=== PATIENT | male | born 1940 | race Caucasian/White ===

== ENCOUNTER → 2017-11-29 | Outpatient (CLI) | payer MEDICARE ==
[~2017-11-29] MED LIST: ACET-1748 PO; BUDE10.2 INH; CALC-936 PO; CHOL200074 PO; CIPR-368 PO; COM14R IH; DOTERRA PO; DOXY-179 PO; GUALA600 PO; HYDR473S4 PO; IPRA3AMP21 IH; LEVO50TA80 PO; LEVO50TA86 PO; LOVA40TA89 PO; MULT-820 PO; OMEP-218 PO; OMEP20CA68 PO; ONDA8TAB94 PO; PRED20TA6 PO; TIO18R INH
--- NOTE | 2017-11-29 14:18 | RADIOLOGY IMAGING REPORT ---
[place] [facility] [place] NAME: Ricky Damon : 1940 MR: [id number] V: [id number] EXAM DATE: ORDERING PHYSICIAN: YENNI VO TECHNOLOGIST: Location: [facility] - [place] Patient: Ricky Damon : 1940 Visit/Account:[id number] Date of Sevice: 11/29/2017 Exam type: CHEST PA AND LAT History: Cough, previous smoker, COPD, history of pneumonia Comparison: March 06, 2013 Findings: Again noted is hyperinflation lung montano with flattening the hemidiaphragms. Pleural parenchymal sc arring in the left lung base is again seen. Appears to be slight increase in the parenchymal density in the medial left lung base which could represent progressive scarring versus superimposed infiltra te and/or atelectasis. Cardiac silhouette is normal in size. There are old left-sided rib fractures . IMPRESSION: 1. Hyperinflation lung montano consistent with history of COPD Pleural plaque or scarring left lung base Slight increased density in the medial left lung base which could represent additional scarring versu s superimposed infiltrate and/or atelectasis. Report Dictated By: Claudine Novak MD at 11/29/2017 2:10 PM Report E-Signed By: Claudine Novak MD at 11/29/2017 2:13 PM WSN:[email or web address]
== END ==
LOC: RAD 10:27
PROVIDERS: ATTEND Nurse Practitioner Primary Care
DX: J44.9 Chronic obstructive pulmonary disease, unspecified (principal); R91.8 Other nonspecific abnormal finding of lung field; F17.201 Nicotine dependence, unspecified, in remission
CPT/HCPCS: 71046

== ENCOUNTER → 2018-11-10 | Outpatient (CLI) | payer MEDICARE ==
[~2018-11-10] MED LIST changes: +ALB18R INH; +IPRA3AMP10 IH; -IPRA3AMP21 IH; +OXYGENHOME INH
== END ==
LOC: RESP 11-08 01:41
PROVIDERS: ATTEND Family Medicine
DX: J98.4 Other disorders of lung (principal)
CPT/HCPCS: 94060; 94726; 94729

== ENCOUNTER → 2019-01-05 | Outpatient (CLI) | payer MEDICARE ==
[2019-01-05 12:20] LABS: PLATELET COUNT, AUTOMATED 274 K/uL (150-450)
== END ==
LOC: LAB 11:48
PROVIDERS: ATTEND Nurse Practitioner Primary Care
DX: R10.30 Lower abdominal pain, unspecified (principal)
CPT/HCPCS: 36415; 81001; 82040; 82247; 82310; 82374; 82435; 82565; 82947; 84075; 84132; 84155; 84295; 84450; 84460; 84520; 85025

== ENCOUNTER → 2019-01-12 | Outpatient (CLI) | payer MEDICARE ==
[~2019-01-12] MED LIST changes: +METR500T15 PO; +SULF-198 PO
--- NOTE | 2019-01-12 15:59 | RADIOLOGY IMAGING REPORT ---
FACILITY: [facility] PATIENT NAME: Ricky Damon : 1940 MR: [id number] V: [id number] EXAM DATE: ORDERING PHYSICIAN: SARAH EDUARDO TECHNOLOGIST: Location: [facility] Patient: Ricky Damon : 1940 Visit/Account:[id number] Date of Sevice: 01/12/2019 CT ABDOMEN PELVIS W/O CON HISTORY: Low abdomen and pelvic pain for two weeks TECHNIQUE: Axial images acquired through the abdomen/pelvis. Coronal and sagittal reformatting also performed. No IV contrast administered.Dose Lowering Technique One of the following dose optimization techniques was utilized in the performance of this exam: Autom ated exposure control; adjustment of the mA and/or kV according to the patient's size; or use of an i terative reconstruction technique. Specific details can be referenced in the facility's radiology C T exam operational policy. COMPARISON: CT of the chest May 28, 2011 FINDINGS: Visualized lung bases: There are emphysematous changes in the visualized lower lung montano in additi on to scarring in the right lower lobe Hepatobiliary: Negative. Spleen: Negative. Adrenals: Negative. Pancreas: Negative. Kidneys ureters and bladder: There is a 2 mm nonobstructing calculus in the lower pole of the left ki dney Genitalia: Prostate gland is enlarged and impinges upon the floor the bladder GI: There is extensive diverticulosis in the sigmoid colon. There is mild wall thickening and mild infiltrative changes in the pericolonic fat within the mid sigmoid colon likely related to acute dive rticulitis. There is no evidence of free perforation or peridiverticular abscess. Scattered diverti cula are seen elsewhere throughout the colon . There is a large hiatal hernia Vessels/spaces/nodes: There moderate to severe atherosclerotic calcifications throughout the abdomen and pelvis Bones/soft tissues: . There is a small umbilical hernia containing fat. A small ventral hernia abo ve the level of the umbilicus containing a knuckle of nonobstructed small bowel. The hernia opening measures approximately 1.5 cm in diameter. There are bilateral inguinal hernias containing fat. Additional findings: None pertinent. IMPRESSION: Finds are consistent with mild acute diverticulitis in the sigmoid colon without evidence of perforat ion or peridiverticular abscess Large hiatal hernia Small umbilical hernia containing fat Bilateral inguinal hernias containing fat There is a small ventral hernia in the upper abdomen containing a knuckle of nonobstructed small brett l. Additional chronic findings as described Results were called to SARAH EDUARDO 'sat nurse Rashida 01/12/2019 3:54 PM. Report Dictated By: Claudine Novak MD at 01/12/2019 3:28 PM Report E-Signed By: Claudine Novak MD at 01/12/2019 3:55 PM WSN:[email or web address]
== END ==
LOC: CT 07:21
PROVIDERS: ATTEND Family Medicine
DX: K44.9 Diaphragmatic hernia without obstruction or gangrene (principal); K42.9 Umbilical hernia without obstruction or gangrene; K40.20 Bilateral inguinal hernia, without obstruction or gangrene, not specified as recurrent
CPT/HCPCS: 74176

== ENCOUNTER 2019-01-20 02:47 | Emergency (ER) | payer MEDICARE ==
--- NOTE | 2019-01-20 02:52 | ER Report ---
History and Physical Time Seen By MD: 02:50 HPI/ROS CHIEF COMPLAINT: Abdominal pain HISTORY OF PRESENT ILLNESS: Patient is a 78-year-old male who presents to the emergency department with complaint of lower abdominal pain. Review of the electronic medical record shows that the patient was seen by primary care provider on January 12 and had complained of abdominal pain was given a CT of the abdomen and pelvis which revealed diverticulitis. Patient was started on Bactrim and Flagyl according to the note. The patient was seen in follow-up on January 16 and was told to continue his antibiotics which looks like he was prescribed a 10 day course. The patient has allergies to both Augmentin, amoxicillin and ciprofloxacin. Patient states that he was feeling improved on the when he saw his primary care provider and then over the course of the next few days the abdominal pain returned. He describes it as a burning in the lower quadrants of the abdomen but somewhat worse on the left side. He reports no nausea or vomiting. He reports mild loose stools without blood or mucus. He denies any chest pain or shortness of breath. Denies fevers or chills. REVIEW OF SYSTEMS: Constitutional: No fever, no chills. Eyes: No discharge. ENT: No sore throat. Cardiovascular: No chest pain, no palpitations. Respiratory: No cough, no shortness of breath. Gastrointestinal: Lower abdominal pain, no nausea, no vomiting Genitourinary: No hematuria. Increased urinary frequency Musculoskeletal: No back pain. Skin: No rashes. Neurological: No headache. Allergies: Coded Allergies: ciprofloxacin (Verified Allergy, Unknown, RASH, 01/20/19) amoxicillin (Verified Adverse Reaction, Unknown, NAUSEA/VOMITING, 01/20/19) clavulanic acid (Verified Adverse Reaction, Unknown, NAUSEA/VOMITING, 01/20/19) Home Meds Active Scripts Hydrocodone Bit/Acetaminophen (HYDROCODON-ACETAMINOPHEN 5-325) 1 Each Tablet, 1 EACH PO Q4-6H for PAIN, #6 TAB 0 Refills Prov:LEIGHA CHO MD 01/20/19 Amoxicillin/Pot Clav 875-125 Mg Tab (AUGMENTIN 875-125 TABLET) 1 Each Tablet, 1 TAB PO Q12H for 3 Days, #6 TAB 0 Refills first dose evening of 01/20/19 Prov:LEIGHA CHO MD 01/20/19 Metronidazole (METRONIDAZOLE) 500 Mg Tablet, 1 TAB PO Q8H, #30 TAB 0 Refills Prov:DIANNA LERMA APRN [employer]ER-C 01/12/19 Sulfamethoxazole/Trimet 800-160 Mg Tab (BACTRIM DS TABLET) 1 Each Tablet, 1 TAB PO Q12H, #20 TAB 0 Refills Prov:DIANNA LERMA APRN [employer]ER-C 01/12/19 Levothyroxine Sodium (LEVOTHYROXINE SODIUM) 50 Mcg Tablet, 1 TAB PO QDAY for 90 Days, #90 TAB 4 Refills Prov:SARAH EDUARDO MD 11/29/18 Omeprazole Magnesium (OMEPRAZOLE MAGNESIUM) 20 Mg Capsule.dr, 1 CAP PO QDAY for 90 Days, #90 CAP 4 Refills Prov:SARHA EDUARDO MD 10/04/18 Lovastatin (LOVASTATIN) 40 Mg Tablet, 1 TAB PO DAILY, #90 TAB 4 Refills Prov:SARAH EDUARDO MD 04/18/18 Budesonide/Formoterol Fumarate (SYMBICORT 160-4.5 MCG INHALER) 10.2 Gm Inh, 2 PUFF INH BID for 90 Days, #3 INH 4 Refills Prov:SARAH EDUARDO MD 01/10/18 Albuterol Sulfate (VENTOLIN HFA) 18 Gm Inh, 1-2 PUFF INH 3-4XD PRN for PRN, #1 INH 11 Refills Prov:SARAH EDUARDO MD 01/03/18 Reported Medications Oxygen (OXYGEN) Inha, 2 L INH, L 05/09/18 Cholecalciferol (Vitamin D3) (VITAMIN D-3) 2,000 Unit Capsule, 1 CAP PO DAILY, CAPSULE 11/02/17 Past Medical/Surgical History Past medical history for hyperlipidemia, COPD, gastroesophageal reflux disease, hypothyroidism, history of lobectomy left lower lobe. Recent history of diverticulitis. Hx Smoking: Yes Smoking Status: Former Smoker Hx Alcohol Use: No Constitutional Vital Sign - Last 24 Hours 01/20/19 01/20/19 01/20/19 01/20/19 02:47 02:51 02:54 03:00 Temp 97.8 Pulse ??? 100 Resp 15 B/P (MAP) 137/87 137/87 (104) 140/109 (119) Pulse Ox 85 5/2501/20/19 01/20/19 01/20/19 03:17 03:30 03:47 04:00 Pulse 82 B/P (MAP) 118/80 (93) 135/74 (94) Pulse Ox 89 92 01/20/19 01/20/19 01/20/19 01/20/19 04:22 04:30 04:52 04:57 Pulse 61 66 58 B/P (MAP) 131/77 (95) Pulse Ox 94 93 93 01/20/19 05:00 B/P (MAP) 129/73 (91) Intake and Output 01/19/19 01/19/19 01/20/19 15:00 23:00 07:00 Intake Total 1100 ml Balance 1100 ml Physical Exam General/Constitutional: Patient is awake, alert, nontoxic and in no acute respiratory distress. Head: Normocephalic and atraumatic. Eyes: Conjunctival clear, Sclera are clear and anicteric. Ears:External canals are clear. Tympanic membranes are clear with normal landmarks and light reflex. Nares: No rhinorrhea or bleeding. Turbinates are pink and moist. Oropharyngeal: Mucous membranes are moist. There is no pharyngeal erythema or exudate. There are no palatal petechiae. Uvula is midline and symmetrical. Neck: Supple, no adenopathy. Cardiovascular: Heart is regular rate and rhythm without audible murmurs, rubs or gallops. Pulmonary: Lungs are clear to auscultation bilaterally. There are no wheezes, rales, or rhonchi. Chest rise is symmetrical Abdomen: Soft, to prevent, no guarding or peritoneal signs Extremities: No gross deformities, No peripheral cyanosis. Able to move all 4 extremities. Neuro: Alert and oriented X3, Skin: No rashes, skin is warm dry and well perfused. Medical Decision Making Data Points Result Diagram: 01/20/195 01/20/19314 Laboratory Hematology Test 01/20/19 02:51 01/20/19 03:15 Urine Color Yellow Urine Clarity Clear Urine pH 6.0 pH (4.8-9.5) Urine Specific Wilmore 1.006 Urine Protein Negative mg/dL (NEGATIVE) Urine Glucose (UA) Negative mg/dL (NEGATIVE) Urine Ketones Negative mg/dL (NEGATIVE) Urine Blood Negative (NEGATIVE) Urine Nitrite Negative (NEGATIVE) Urine Bilirubin Negative (NEGATIVE) Urine Urobilinogen Negative mg/dL (0.2-1.9) Urine Leukocyte Esterase Negative (NEGATIVE) Urine RBC 1 /HPF (0-2/HPF) Urine WBC <1 /HPF (0-5/HPF) Urine Squamous Epithelial Cells Few /LPF (</=FEW) Urine Bacteria Negative /HPF (NONE-FEW) Urine Mucus None /HPF (NONE-FEW) Red Blood Count 5.44 M/uL (4.00-5.60) Mean Corpuscular Volume 88.5 fL (80.0-96.0) Mean Corpuscular Hemoglobin 30.3 pg (26.0-33.0) Mean Corpuscular Hemoglobin Concent 34.3 g/dL (32.0-36.0) Red Cell Distribution Width 14.7 % (11.5-14.5) Mean Platelet Volume 9.2 fL (7.2-11.1) Neutrophils (%) (Auto) 58.4 % (39.4-72.5) Lymphocytes (%) (Auto) 32.6 % (17.6-49.6) Monocytes (%) (Auto) 7.7 % (4.1-12.4) Eosinophils (%) (Auto) 0.7 % (0.4-6.7) Basophils (%) (Auto) 0.6 % (0.3-1.4) Nucleated RBC Relative Count (auto) 0.0 /100WBC Neutrophils # (Auto) 5.9 K/uL (2.0-7.4) Lymphocytes # (Auto) 3.3 K/uL (1.3-3.6) Monocytes # (Auto) 0.8 K/uL (0.3-1.0) Eosinophils # (Auto) 0.1 K/uL (0.0-0.5) Basophils # (Auto) 0.1 K/uL (0.0-0.1) Nucleated RBC Absolute Count (auto) 0.00 K/uL Sodium Level 136 mmol/L (137-145) Potassium Level 4.1 mmol/L (3.5-5.0) Chloride Level 104 mmol/L (98-107) Carbon Dioxide Level 21 mmol/L (22-30) Blood Urea Nitrogen 13 mg/dl (9-21) Creatinine 1.50 mg/dl (0.66-1.25) Glomerular Filtration Rate Calc 45.4 Random Glucose 116 mg/dl (75-110) Calcium Level 9.9 mg/dl (8.4-10.2) Total Bilirubin 0.5 mg/dl (0.2-1.3) Aspartate Amino Transf (AST/SGOT) 41 U/L (0-35) Alanine Aminotransferase (ALT/SGPT) 44 U/L (0-56) Alkaline Phosphatase 37 U/L (0-126) Total Protein 7.0 g/dl (6.3-8.2) Albumin 4.3 g/dl (3.5-5.0) Lipase 63 U/L (23-300) Chemistry Test 01/20/19 02:51 01/20/19 03:15 Urine Color Yellow Urine Clarity Clear Urine pH 6.0 pH (4.8-9.5) Urine Specific Wilmore 1.006 Urine Protein Negative mg/dL (NEGATIVE) Urine Glucose (UA) Negative mg/dL (NEGATIVE) Urine Ketones Negative mg/dL (NEGATIVE) Urine Blood Negative (NEGATIVE) Urine Nitrite Negative (NEGATIVE) Urine Bilirubin Negative (NEGATIVE) Urine Urobilinogen Negative mg/dL (0.2-1.9) Urine Leukocyte Esterase Negative (NEGATIVE) Urine RBC 1 /HPF (0-2/HPF) Urine WBC <1 /HPF (0-5/HPF) Urine Squamous Epithelial Cells Few /LPF (</=FEW) Urine Bacteria Negative /HPF (NONE-FEW) Urine Mucus None /HPF (NONE-FEW) White Blood Count 10.0 k/uL (4.5-11.0) Red Blood Count 5.44 M/uL (4.00-5.60) Hemoglobin 16.5 g/dL (14.0-18.0) Hematocrit 48.2 % (42.0-52.0) Mean Corpuscular Volume 88.5 fL (80.0-96.0) Mean Corpuscular Hemoglobin 30.3 pg (26.0-33.0) Mean Corpuscular Hemoglobin Concent 34.3 g/dL (32.0-36.0) Red Cell Distribution Width 14.7 % (11.5-14.5) Platelet Count 286 K/uL (150-450) Mean Platelet Volume 9.2 fL (7.2-11.1) Neutrophils (%) (Auto) 58.4 % (39.4-72.5) Lymphocytes (%) (Auto) 32.6 % (17.6-49.6) Monocytes (%) (Auto) 7.7 % (4.1-12.4) Eosinophils (%) (Auto) 0.7 % (0.4-6.7) Basophils (%) (Auto) 0.6 % (0.3-1.4) Nucleated RBC Relative Count (auto) 0.0 /100WBC Neutrophils # (Auto) 5.9 K/uL (2.0-7.4) Lymphocytes # (Auto) 3.3 K/uL (1.3-3.6) Monocytes # (Auto) 0.8 K/uL (0.3-1.0) Eosinophils # (Auto) 0.1 K/uL (0.0-0.5) Basophils # (Auto) 0.1 K/uL (0.0-0.1) Nucleated RBC Absolute Count (auto) 0.00 K/uL Glomerular Filtration Rate Calc 45.4 Calcium Level 9.9 mg/dl (8.4-10.2) Total Bilirubin 0.5 mg/dl (0.2-1.3) Aspartate Amino Transf (AST/SGOT) 41 U/L (0-35) Alanine Aminotransferase (ALT/SGPT) 44 U/L (0-56) Alkaline Phosphatase 37 U/L (0-126) Total Protein 7.0 g/dl (6.3-8.2) Albumin 4.3 g/dl (3.5-5.0) Lipase 63 U/L (23-300) Urinalysis Test 01/20/19 02:51 Urine Color Yellow Urine Clarity Clear Urine pH 6.0 pH (4.8-9.5) Urine Specific Wilmore 1.006 Urine Protein Negative mg/dL (NEGATIVE) Urine Glucose (UA) Negative mg/dL (NEGATIVE) Urine Ketones Negative mg/dL (NEGATIVE) Urine Blood Negative (NEGATIVE) Urine Nitrite Negative (NEGATIVE) Urine Bilirubin Negative (NEGATIVE) Urine Urobilinogen Negative mg/dL (0.2-1.9) Urine Leukocyte Esterase Negative (NEGATIVE) Urine RBC 1 /HPF (0-2/HPF) Urine WBC <1 /HPF (0-5/HPF) Urine Squamous Epithelial Cells Few /LPF (</=FEW) Urine Bacteria Negative /HPF (NONE-FEW) Urine Mucus None /HPF (NONE-FEW) EKG/Imaging Imaging FACILITY: [facility] PATIENT NAME: Ricky Damon : 1940 MR: [id number] V: [id number] EXAM DATE: [id number] ORDERING PHYSICIAN: LEIGHA CHO TECHNOLOGIST: Location: [facility] - [place] Patient: Ricky Damon : 1940 Visit/Account:[id number] Date of Sevice: 01/20/2019 COMPUTED TOMOGRAPHY ABDOMEN AND PELVIS WITH INTRAVENOUS CONTRAST DATE OF EXAM: 01/20/2019 2:59 AM INDICATION: Left lower quadrant abdominal pain. COMPARISON: 01/12/2019. TECHNIQUE: Contrast enhanced abdomen and pelvis CT performed during the injection of 75 ml of Isovue 370. Sagittal and coronal reconstructions were performed. One of the following dose optimization techniques was utilized in the performance of this exam: Automated exposure control; adjustment of the mA and/or kV according to the patient's size; or use of an iterative reconstruction technique. Specific details can be referenced in the facility's radiology CT exam operational policy. FINDINGS: Lung bases: Bibasilar scarring and emphysema. Liver and hepatic vasculature: Normal. Gallbladder and bile ducts: Normal. Spleen: Normal. Pancreas: Normal. Adrenals: Normal. Kidneys, ureters and bladder: Normal. Retroperitoneum and aorta: Nonaneurysmal aorta with cluc-pt-pldyujpq atherosclerosis. No adenopathy. GI tract, mesentery and peritoneum: Severe sigmoid diverticulosis. Focal inflammation near the midpoint of the sigmoid colon on the prior examination has largely resolved. No evidence of obstruction. No pneumatosis, pneumoperitoneum or significant free fluid. Normal appendix. Moderate to large size hiatal hernia. Prostate and seminal vesicles: Prostamegaly. Bones and soft tissues: Fat-containing umbilical and bilateral inguinal hernias as previously described. IMPRESSION: Diverticulitis seen on the prior examination appears to have resolved. Underlying severe sigmoid diverticulosis. Additional nonacute findings as described. Report Dictated By: Liang Cabrales MD at 01/20/2019 4:18 AM Report E-Signed By: Liang Cabrales MD at 01/20/2019 4:26 AM WSN:[email or web address] ED Course/Re-evaluation ED Course 01/20/2019 3:02:06 am After history and physical exam was performed differential diagnosis was formulated which includes but is not limited to failed outpatient treatment of diverticulitis, colitis, urinary tract infection. Plan at this time will be to place an IV we will give fluids IV Toradol for pain. Current pain level is 6 out of 10 in intensity. We'll perform abdominal workup including labs and CT scan of the abdomen and pelvis. 01/20/2019 4:49:[address] scan shows a resolution of prior diverticulitis there is severe sigmoid diverticulosis. Because of pain symptoms we will switch antibiotics we will give 1 dose of IV piperacillin/tazobactam; we'll then have him stop his Flagyl and Bactrim and give 3 additional days of Augmentin. Patient was instructed that if he develops a fever at any time or his abdominal pain worsens he should follow-up with his primary care provider or return to the emergency department for reevaluation Decision to Disposition Date: January 20, 2019 Decision to Disposition Time: 06:35 Depart Departure Latest Vital Signs Vital Signs Date Time Temp Pulse Resp B/P (MAP) Pulse Ox O2 Delivery O2 Flow Rate FiO2 01/20/19 05:00 129/73 (91) 01/20/19 04:57 58 93 01/20/19 02:51 97.8 15 Impression: Primary Impression: Abdominal pain Condition: Improved Disposition: HOME OR SELF-CARE Referrals: SARAH EDUARDO MD (PCP) New Scripts Hydrocodone Bit/Acetaminophen (HYDROCODON-ACETAMINOPHEN 5-325) 1 Each Tablet 1 EACH PO Q4-6H for PAIN, #6 TAB 0 Refills Prov: LEIGHA CHO MD 01/20/19 Amoxicillin/Pot Clav 875-125 Mg Tab (AUGMENTIN 875-125 TABLET) 1 Each Tablet 1 TAB PO Q12H for 3 Days, #6 TAB 0 Refills first dose evening of 01/20/19 Prov: LEIGHA CHO MD 01/20/19 Patient Instructions: Abdominal Pain (ED) Additional Instructions: Discontinue use of the Flagyl and Bactrim. Filled a prescription for Augmentin. Your 1st dose of Augmentin will be sometime this evening and then twice per day until completed. If at anytime you develops fever or abdominal pain worsens you should return to the emergency department for reevaluation. Problem Qualifiers Primary Impression: Abdominal pain Abdominal location: lower abdomen, unspecified Qualified Codes: R10.30 - Lower abdominal pain, unspecified LEIGHA CHO MD January 20, 2019 02:52
[2019-01-20] MEDS ORDERED: NS(*) 0.9% 1000 ML BAG 1,000 ML IV ONE (02:59)
[2019-01-20] MEDS ORDERED: KETOROLAC 30 MG/ML VIAL IVP ONE (03:00)
[2019-01-20 03:26] LABS: PLATELET COUNT, AUTOMATED 286 K/uL (150-450)
[2019-01-20] MEDS ORDERED: IOPAMIDOL 76% 100 ML INFUS BTL 100 ML ONE (03:51)
--- NOTE | 2019-01-20 04:30 | RADIOLOGY IMAGING REPORT ---
FACILITY: [facility] PATIENT NAME: Ricky Damon : 1940 MR: [id number] V: [id number] EXAM DATE: [id number] ORDERING PHYSICIAN: LEIGHA CHO TECHNOLOGIST: Location: [facility] Patient: Ricky Damon : 1940 Visit/Account:[id number] Date of Sevice: 01/20/2019 COMPUTED TOMOGRAPHY ABDOMEN AND PELVIS WITH INTRAVENOUS CONTRAST DATE OF EXAM: 01/20/2019 2:59 AM INDICATION: Left lower quadrant abdominal pain. COMPARISON: 01/12/2019. TECHNIQUE: Contrast enhanced abdomen and pelvis CT performed during the injection of 75 ml of Isovue 370. Sagittal and coronal reconstructions were performed. One of the following dose optimization te chniques was utilized in the performance of this exam: Automated exposure control; adjustment of the mA and/or kV according to the patient's size; or use of an iterative reconstruction technique. Spec [facility] details can be referenced in the facility's radiology CT exam operational policy. FINDINGS: Lung bases: Bibasilar scarring and emphysema. Liver and hepatic vasculature: Normal. Gallbladder and bile ducts: Normal. Spleen: Normal. Pancreas: Normal. Adrenals: Normal. Kidneys, ureters and bladder: Normal. Retroperitoneum and aorta: Nonaneurysmal aorta with veie-ru-ikjiiien atherosclerosis. No adenopathy . GI tract, mesentery and peritoneum: Severe sigmoid diverticulosis. Focal inflammation near the midp oint of the sigmoid colon on the prior examination has largely resolved. No evidence of obstruction. No pneumatosis, pneumoperitoneum or significant free fluid. Normal appendix. Moderate to large si ze hiatal hernia. Prostate and seminal vesicles: Prostamegaly. Bones and soft tissues: Fat-containing umbilical and bilateral inguinal hernias as previously descri bed. IMPRESSION: Diverticulitis seen on the prior examination appears to have resolved. Underlying severe sigmoid diverticulosis. Additional nonacute findings as described. Report Dictated By: Liang Cabrales MD at 01/20/2019 4:18 AM Report E-Signed By: Liang Cabrales MD at 01/20/2019 4:26 AM WSN:[id number]
[2019-01-20] MEDS ORDERED: PIPERACILLIN/TAZO* 4.5 GM VIAL 4.5 GM in NS(*) 0.9% 100 ML MINI-BAG 100 ML IVPB ONE (04:40)
[2019-01-20] MEDS ORDERED: LOR5/325 PO (04:55)
[2019-01-20] MEDS ORDERED: AMOX-559 PO (04:55)
[2019-01-20 05:00] VITALS: BP 129/73
== END 2019-01-20 05:37 | disposition home or self-care (01) ==
LOC: ER 02:50
DX: R10.30 Lower abdominal pain, unspecified (principal); K57.30 Diverticulosis of large intestine without perforation or abscess without bleeding
CPT/HCPCS: 74177; 81001; 83690; 85025; 96361; 96365; 96375; 99284; J1885; J2543; J7030; Q9967; 82040; 82247; 82310; 82374; 82435; 82565; 82947; 84075; 84132; 84155; 84295; 84450; 84460; 84520

== ENCOUNTER → 2019-02-01 | Outpatient (CLI) | payer MEDICARE ==
[~2019-02-01] MED LIST changes: +AMOX-559 PO; +LOR5/325 PO
--- NOTE | 2019-02-01 11:55 | RADIOLOGY IMAGING REPORT ---
[place] [facility] [place] NAME: Ricky Damon : 1940 MR: [id number] V: [id number] EXAM DATE: ORDERING PHYSICIAN: ISADORA MITCHELL TECHNOLOGIST: Location: [facility] - [place] Patient: Ricky Damon : 1940 Visit/Account:[id number] Date of Sevice: 02/01/2019 Exam type: CHEST PA LAT History: Cold, mild cough, COPD, preop clearance Comparison: November 29, 2017. Findings: Again noted is hyperinflation lung montano consistent with the history of COPD. Pleural parenchymal s carring in the left lung base appears similar to the prior study. No acute-appearing areas of pulmon annette consolidation are identified. The cardiac silhouette is normal in size. There are old left-side d rib fractures. IMPRESSION: 1. Hyperinflation of the lung montano consistent with history of COPD Pleural parenchymal scarring in the left lung base appears similar to the prior study Report Dictated By: Claudine Novak MD at 02/01/2019 11:49 AM Report E-Signed By: Claudine Novak MD at 02/01/2019 11:50 AM WSN:[email or web address]
--- NOTE | 2019-02-01 14:51 | EKG ---
FACILITY: [facility] - [place] PATIENT NAME: ADRIAN RDORIGUEZ : [id number] MR: [id number] V: [id number] EXAM DATE: ORDERING PHYSICIAN: ISADORA MITCHELL TECHNOLOGIST: KEVIN Test Reason : PRE-OP Blood Pressure : / mmHG Vent. Rate : 069 BPM Atrial Rate : 069 BPM P-R Int : 154 ms QRS Dur : 102 ms QT Int : 436 ms P-R-T Axes : 078 088 056 degrees QTc Int : 467 ms Sinus rhythm Nonspecific ST-T findings in anterior leads No previous ECGs available Confirmed by LETICIA GUTIERREZ ([id number]) on 02/01/2019 3:12:57 PM Referred By: Confirmed By:LETICIA GUTIERREZ
== END ==
LOC: RESP 09:55
PROVIDERS: ATTEND Surgery
DX: Z01.810 Encounter for preprocedural cardiovascular examination (principal)
CPT/HCPCS: 71046

== ENCOUNTER 2019-03-23 00:48 | Day surgery (SDC) | payer MEDICARE ==
[~2019-03-23] VITALS: Ht 177.8 cm; Wt 72.6 kg
[2019-03-23 06:55] VITALS: BP 148/89
[2019-03-23] MEDS ORDERED: LIDOCAINE/SOD BICARB 8.4% SYR ID ONE (07:00)
[2019-03-23] MEDS ORDERED: NORMOSOL R SOLN(*) 1000 ML BAG 1,000 ML IV PRN (07:00)
[2019-03-23 08:44] VITALS: BP 98/63
--- NOTE | 2019-03-23 08:48 | NUR ---
Patient resting comfortably. will allow to rest and continue to monitor.
--- NOTE | 2019-03-23 08:52 | Short(Outpt) Discharge Summary ---
Discharge Summary Reason for Hosp/Final Diag: (1) Diverticulitis Hospital Course & Plan: pt presented for colonoscopy. he tolerated the procedure well and will be discharged home when criteria met. Departure Discharge to: Home Discharge Instructions Home Meds Active Scripts Budesonide/Formoterol Fumarate (SYMBICORT 160-4.5 MCG INHALER) 10.2 Gm Inh, 2 PUFF INH BID for 90 Days, #3 INH 4 Refills Prov:SARAH EDUARDO MD 02/26/19 Levothyroxine Sodium (LEVOTHYROXINE SODIUM) 50 Mcg Tablet, 1 TAB PO QDAY for 90 Days, #90 TAB 4 Refills Prov:SARAH EDUARDO MD 11/29/18 Omeprazole Magnesium (OMEPRAZOLE MAGNESIUM) 20 Mg Capsule.dr, 1 CAP PO QDAY for 90 Days, #90 CAP 4 Refills Prov:SARAH EDUARDO MD 10/04/18 Lovastatin (LOVASTATIN) 40 Mg Tablet, 1 TAB PO DAILY, #90 TAB 4 Refills Prov:SARAH EDUARDO MD 04/18/18 Albuterol Sulfate (VENTOLIN HFA) 18 Gm Inh, 1-2 PUFF INH 3-4XD PRN for PRN, #1 INH 11 Refills Prov:SARAH EDUARDO MD 01/03/18 Reported Medications Oxygen (OXYGEN) Inha, 2 L INH, L 05/09/18 Cholecalciferol (Vitamin D3) (VITAMIN D-3) 2,000 Unit Capsule, 1 CAP PO DAILY, CAPSULE 11/02/17 Diet: Regular Activity: As Tolerated Special Instructions: we will call you in 10 days with results. ISADORA MITCHELL Mar 23, 2019 08:52
--- NOTE | 2019-03-23 08:54 | NUR ---
supplemental oxygen decreased to 4 L/Min and switched from oxymask to nasal canula. patient tolerating well. will continue to monitor.
--- NOTE | 2019-03-23 09:05 | NUR ---
Decreased patient supplemental oxygen to 1L/min. tolerating well, will continue to assess.
[2019-03-23 09:07] VITALS: BP 121/78
--- NOTE | 2019-03-23 09:10 | NUR ---
Patient removed from supplemental oxygen. O2 sat maintaining at 94%.
--- NOTE | 2019-03-23 09:15 | NUR ---
Orthostatic vitals complete. Sitting BP-107/78 O2 sat 94% Standing-BP 1087/72, O2 sat. 94% Patient tolerated well.
--- NOTE | 2019-03-23 09:22 | NUR ---
Patient voided bladder into toilet.
[2019-03-23 09:33] VITALS: BP 108/72
== END 2019-03-23 09:35 | disposition home or self-care (01) ==
LOC: OR 00:48
PROVIDERS: ATTEND Surgery
DX: Z12.11 Encounter for screening for malignant neoplasm of colon (principal); K63.5 Polyp of colon; K57.30 Diverticulosis of large intestine without perforation or abscess without bleeding
CPT/HCPCS: 88305

== ENCOUNTER 2019-03-27 15:00 | Outpatient (RCR) | payer MEDICARE | END 2019-03-28 | LOC: CARD 15:00 | PROVIDERS: ATTEND Family Medicine | DX: J44.9 Chronic obstructive pulmonary disease, unspecified (principal) | CPT/HCPCS: G0424 ×16 ==